=== PATIENT | male | born 1990 | race Caucasian/White ===

== ENCOUNTER 2016-12-03 09:04 | Emergency (ER) | payer MEDICAID ==
[~2016-12-03] VITALS: Ht 180.3 cm; Wt 94.3 kg
[2016-12-03 09:12] VITALS: BP_SYST 139
[2016-12-03] MEDS ORDERED: CYCLOBENZAPRINE HCL 10 MG TABLET (FLEXERIL) PO ONE (10:30)
[2016-12-03] MEDS ORDERED: KETOROLAC TROMETHAMINE 60 MG/2 ML VIAL IM ONE (10:30)
[2016-12-03] MEDS ORDERED: OXYCODONE/ACETAMINOPHEN 5-325 TABLET PO ONE (11:15)
[2016-12-03 14:00] VITALS: BP_SYST 125
== END 2016-12-03 12:53 | disposition home or self-care (01) ==
LOC: SED 09:04
DX: M62.838 Other muscle spasm (principal)
CPT/HCPCS: 96372; 99283; J1885